=== PATIENT | female | born 1945 | race Two or more races ===

== ENCOUNTER 2023-05-01 06:59 | Emergency (ER) | payer OTHER ==
[~2023-05-01] VITALS: Ht 170.2 cm; Wt 90.7 kg
[2023-05-01] MEDS ORDERED: METFORMIN HCL500 M3 (07:17)
[2023-05-01] MEDS ORDERED: SYNTHROID75 MCG (07:17)
[2023-05-01] MEDS ORDERED: ELIQUIS2.5 MG (07:17)
== END 2023-05-01 11:38 | disposition home or self-care (01) ==
LOC: ER 06:59
DX: S00.531A Contusion of lip, initial encounter (principal); W06.XXXA Fall from bed, initial encounter; Y93.89 Activity, other specified; Y92.230 Patient room in hospital as the place of occurrence of the external cause; I49.8 Other specified cardiac arrhythmias; E11.9 Type 2 diabetes mellitus without complications; E03.9 Hypothyroidism, unspecified; E78.00 Pure hypercholesterolemia, unspecified; Z88.6 Allergy status to analgesic agent; Z88.0 Allergy status to penicillin; S20.229A Contusion of unspecified back wall of thorax, initial encounter